=== PATIENT | male | born 1940 | race Caucasian/White ===

== ENCOUNTER → 2019-12-28 11:12 | Outpatient (CLI) | payer MEDICARE, SELFPAY ==
--- NOTE | ~2019-12-28 | CT_ITS ---
EXAMINATION: CT abdomen pelvis wo con DATE: 12/28/2019 11:51 INDICATION: Right-sided abdominal pain, right flank pain. Recent right rib fractures. Loss of appetit e. TECHNIQUE: Computed tomography (CT) of the abdomen and pelvis was performed without intravenous contr ast. Automated exposure control and iterative reconstruction technique were employed. Exam dose: 625 .14 mGy-cm total exam DLP. COMPARISON: None. FINDINGS: Prominent coronary artery calcifications are noted. Heart size is within normal limits. No pericardial or pleural effusion. There is mild discoid atelectasis or scarring in the right lower lob e. There are numerous small stones in the dependent aspect of the gallbladder. No gallbladder wall thick ening or pericholecystic fluid or inflammation. No bile duct or pancreatic duct dilatation. No hepatic, splenic, pancreatic, and adrenal or renal space-occupying mass lesion is evident. There is a 5 mm calculus at the distal aspect of the right ureterovesical junction with associated mi ld to moderate right hydroureteronephrosis. There is an approximately 2.4 mm nonobstructing lower pole right renal calculus. There is an approximately 4.8 x 10.6 mm lower pole nonobstructing left renal calculus with attenuatio n of 943 Hounsfield units approximately. No left hydronephrosis. There is prostate enlargement and calcification. There is atherosclerotic calcification of the abdominal aorta and renal arteries; no abdominal aortic aneurysm. There are iliac artery calcifications. There are innumerable diverticula of the sigmoid colon and lesser involvement of the descending colon . No CT evidence of diverticulitis is detected. Normal appendix. No bowel obstruction, bowel wall thickening, pneumatosis or intraperitoneal free air. Very small fat-containing umbilical hernia. Recent seventh through 11th rib fractures are noted. There is severe degenerative disc disease throughout the included lower thoracic and lumbar spine as well as prominent degenerative change at the apophyseal joints. There is grade 1 anterolisthesis at L1-2. There is mild retrolisthesis at L3-4 and L4-5. 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 Ventriculoperitoneal shunt catheter is noted. IMPRESSION: Recent left seventh through 11th rib fractures, some healing Prominent coronary artery atherosclerotic calcification Cholelithiasis 5 mm obstructing right ureterovesical junction calculus with moderate moderate right hydroureteroneph rosis 2.4 mm nonobstructing lower pole right renal calculus 4.8 x 10.6 mm lower pole left renal nonobstructing calculus Prostate enlargement and calcification Extensive diverticulosis of the sigmoid and to a lesser extent descending colon; no CT evidence of di verticulitis Reviewed, dictated and finalized at [facility]. Reviewed, dictated and finalized at location B. IMPRESSION: Recent left seventh through 11th rib fractures, some healing Prominent coronary artery atherosclerotic calcification Cholelithiasis 5 mm obstructing right ureterovesical junction calculus with moderate moderate right hydroureteronephrosis 2.4 mm nonobstructing lower pole right renal calculus 4.8 x 10.6 mm lower pole left renal nonobstructing calculus Prostate enlargement and calcification Extensive diverticulosis of the sigmoid and to a lesser extent descending colon ; no CT evidence of diverticulitis
== END ==
PROVIDERS: PCP Internal Medicine; Visit Provider Internal Medicine
DX: R10.9 Unspecified abdominal pain (principal); R63.0 Anorexia; N20.2 Calculus of kidney with calculus of ureter; K57.30 Diverticulosis of large intestine without perforation or abscess without bleeding; N40.1 Benign prostatic hyperplasia with lower urinary tract symptoms
CPT/HCPCS: 74176

== ENCOUNTER 2020-01-01 11:20 | Outpatient (CLI) | payer MEDICARE, SELFPAY ==
--- NOTE | ~2020-01-01 | CT_ITS ---
EXAMINATION: CT abdomen pelvis wo con DATE: 01/01/2020 11:48 INDICATION: Right ureteral stone. TECHNIQUE: Computed tomography (CT) of the abdomen and pelvis was performed without intravenous contr ast. Automated exposure control and iterative reconstruction technique were employed. The dose-length product was 229.44 mGy-cm. COMPARISON: CT abdomen and pelvis 12/28/2019 FINDINGS: The visualized portions of the lung bases demonstrate mild atelectasis. No pleural effusion . The heart size is normal. There are coronary artery calcifications. No pericardial effusion. Left h epatic lobe is small. There are gallstones in the gallbladder, which is normal in size. The spleen, p ancreas, and adrenal glands are normal. There is a small area of focal parenchymal volume loss in rig ht kidney with 2 mm parenchymal calcification. There are 5 mm and 4 mm stones in left kidney. The pro state is mildly enlarged. There is a 4 mm stone in the prostatic urethra. There is diverticulosis of the colon without evidence of diverticulitis. There are no dilated loops of bowel. A ventriculoperito gilbert shunt is noted. There are no pathologically enlarged lymph nodes. There is no free intraperitone al fluid. There are multiple healing left-sided rib fractures. There is severe thoracolumbar spondylo sis. There is a benign bone island in T8 vertebral body. IMPRESSION: 1. 4 mm stone in the prostatic urethra. 2. Nonobstructing left kidney stones. Reviewed, dictated and finalized at location B.
--- NOTE | ~2020-01-01 | XR_ITS ---
EXAMINATION: XR abdomen/kub 1V DATE: 01/01/2020 11:53 INDICATION: Right ureteral stone. TECHNIQUE: A supine view of the abdomen on 2 radiographs was obtained. COMPARISON: CT abdomen and pelvis 01/01/2020 FINDINGS: There are no dilated loops of bowel. There are phleboliths in the pelvis. There are 4 mm an d 5 mm stones in left kidney lower pole. A ventriculoperitoneal shunt is noted. IMPRESSION: 1. Left kidney stones. Reviewed, dictated and finalized at location B. IMPRESSION: 1. Left kidney stones.
== END 2020-01-01 11:21 | disposition home or self-care (01) ==
LOC: ANHIMG 11:27
PROVIDERS: PCP Internal Medicine; Visit Provider Nurse Practitioner Adult Health
DX: N20.2 Calculus of kidney with calculus of ureter (principal)
CPT/HCPCS: 74018; 74176

== ENCOUNTER 2021-03-20 08:28 | Outpatient (CLI) | payer MEDICARE, SELFPAY ==
--- NOTE | ~2021-03-20 | CT_ITS ---
EXAMINATION: CT abdomen pelvis w con INDICATION: Prostate cancer TECHNIQUE: Computed tomographic images of the abdomen and pelvis were obtained after the administrati on of 100 cc of Omnipaque 350 intravenous contrast. The dose-length product (DLP) was 647.15 mGy-cm. Automated exposure control and iterative reconstruction technique were employed. COMPARISON: 01/01/2020 FINDINGS: The lung bases are clear. The heart size is normal. The liver is diffusely low in attenuati on when compared with the spleen, consistent with hepatic steatosis. The spleen, pancreas, and adrena l glands are normal. Stones are present in the nondistended gallbladder. Nonobstructing stones of the kidneys measure up to 10 mm on the left and 3 mm on the right. There is calcified atherosclerosis of the aorta and many of the other arteries. No pathologically enlarged abdominal or pelvic lymph nodes are identified. There is no free intraperitoneal gas or evidence of bowel obstruction. A ventriculop eritoneal shunt courses in the right anterior abdominal wall and ends with its tip in the left pelvis . Colonic diverticulosis is present without evidence of diverticulitis. There is a 2.7 cm partially c alcified mass of the left posterolateral bladder. There is severe lumbar spondylosis. There are bilat eral inguinal hernias containing fat. Multiple healed left-sided rib fractures are noted. IMPRESSION: 1. 2.7 cm partially calcified mass of the left posterolateral bladder. Direct visualization is recomm ended. Reviewed, dictated and finalized at location A. IMPRESSION: 1. 2.7 cm partially calcified mass of the left posterolateral bladder. Direct v isualization is recommended.
--- NOTE | ~2021-03-20 | NM_ITS ---
EXAMINATION: NM bone scan whole body DATE: 03/20/2021 11:50 INDICATION: Prostate cancer. TECHNIQUE: 24 mCi Tc-99m HDP was administered intravenously. Delayed whole-body scintigrams were obt ained. COMPARISON: CT abdomen and pelvis 03/20/2021 FINDINGS: There are bilateral total knee arthroplasties. There is joint-centered increased activity i n the shoulders and wrists without comparison radiographs, likely osteoarthritis. There foci of incre ased activity in the spine correlating with spondylosis by CT. IMPRESSION: 1. No evidence of metastatic disease. Reviewed, dictated and finalized at location A.
[2021-03-20 09:01] LABS: Estimated Glomerular Filt Rate > 60
== END 2021-03-20 08:29 | disposition home or self-care (01) ==
PROVIDERS: PCP Internal Medicine; Visit Provider Urology
DX: C66.1 Malignant neoplasm of right ureter (principal)
CPT/HCPCS: 74177; 78306; A9561; Q9967

== ENCOUNTER 2021-04-01 13:17 | Outpatient (CLI) | payer MEDICARE, SELFPAY ==
[2021-04-01 13:55] LABS: Basophils Absolute Auto 0.1 K/mm3 (0.0-0.1); Basophils Percent Auto 0.5 % (0.2-1.2); Eosinophils Absolute Auto 0.4 K/mm3 (0-0.3); Eosinophils Percent Auto 2.7 % (0-4.4); Hematocrit 47.4 % (42.0-52.0); Hemoglobin 16.5 g/dL (14.0-18.0); Immature Granulocyte Absolute 0.13 K/mm3 (0.00-0.031); Lymphocytes Absolute Auto 3.63 K/mm3 (0.9-3.2); Lymphocytes Percent Auto 27.9 % (18.3-44.2); Mean Corpuscular HGB Conc 34.8 g/dl (32-36); Mean Corpuscular Volume 94.8 fl (80-100); Mean Platelet Volume 9.5 fl (7.4-10.4); Monocytes Absolute Auto 0.9 K/mm3 (0.1-0.6); Monocytes Percent Auto 7.2 % (2.6-8.5); Neutrophils Absolute Auto 7.9 K/mm3 (1.3-6.7); Neutrophils Percent Auto 60.7 % (45.5-73.1); Platelet Count Result 209 k/mm3 (150-375); Red Cell Distribution Width 13.4 % (11.5-14.5)
[2021-04-01 14:13] LABS: Anion Gap 11 mmol/L (8-16); Blood Urea Nitrogen 29 mg/dL (9-20); Calcium 9.4 mg/dL (8.4-10.2); Carbon Dioxide 28 mmol/L (22-30); Chloride 103 mmol/L (98-107); Estimated Glomerular Filt Rate > 60; Glucose 130 mg/dL (65-110); Potassium 4.2 mmol/L (3.4-5.0); Sodium 142 mmol/L (137-145)
[2021-04-01 14:16] LABS: Partial Thromboplastin Time 24.1 SECONDS (22.3-36.8)
== END 2021-04-01 13:18 | disposition home or self-care (01) ==
LOC: ANHSURGERY 13:21
PROVIDERS: PCP Internal Medicine; Visit Provider Urology
DX: N32.89 Other specified disorders of bladder (principal); Z01.818 Encounter for other preprocedural examination
CPT/HCPCS: 36415; 80048; 85025; 85610; 85730; 87086

== ENCOUNTER 2021-04-04 03:00 | Day surgery (SDC) | payer MEDICARE, SELFPAY ==
[2021-04-01 09:43] VITALS: BMI 29.9
--- NOTE | 2021-04-01 10:10 | PC.NURSE ---
Report to the Outpatient Waiting Room, entrance under the green pavilion located off [facility], at time _0830__ on date _04/04/21__. OR Time: _1030__. - You and your visitor will be asked a series of questions to screen for COVID 19 for your protection. - A mask is required within the hospital. - Only one visitor is allowed at this time. Patient visitors will be guided where to wait when not with patient. Preoperative COVID Testing Requirements: No COVID Test needed if: (proof is required; if not received patient will have Rapid Test prior to entry) - Patient has received COVID Vaccine at least 14 days prior to procedure date or - Patient has positive COVID test result within last 90 days of surgery date. COVID Test needed if above criteria is not met If not COVID vaccinated a COVID test must be conducted within 72 hours of surgery and patient is asked to isolate self from time of testing until procedure. You will go to the [facility] for your COVID testing. The [facility] is located at the corner of [address] [facility]. You will only be called if COVID results are positive and your surgeon may reschedule your elective surgery date. Patients may have clear liquids (water, carbonated beverages, clear teas, apple juice) until 3 hours prior to surgery with a maximum of 20 ounces. - No food from midnight until time of surgery - Infants may have breast milk until 4 hours before surgery, infant formula 6 hours prior to surgery. - Children will be allowed to drink immediately following surgery. If applicable, please bring a bottle or sippy cup to assist with drinking. Juice, water, soda, and popsicles are readily available. For infants on formula, please bring formula the day of surgery. Pacifiers are allowed. Take the following medications with a SIP of water the morning of surgery: _METOPROLOL, PAIN PILL IF NEEDED___ Medications to discontinue per physician _ASPIRIN, ALL VITAMINS & SUPPLEMENTS____ Date to take last dose__AS OF TODAY Please no make-up, nail brazilian, hairspray, perfume, deodorant, or body powder the day of surgery. No jewelry (including any body piercings) or valuables the day of surgery, leave them at home. Please take a shower or bath the night before, or the morning of, surgery with an antibacterial soap. Wear comfortable, loose fitting clothing. Children are encouraged to wear pajamas. - Jewelry must be removed prior to entering the operating room. Rings and piercings that are not removed may be cut off. - The hospital will not accept responsibility for valuables. - Please leave all valuables, including medications, at home the day of surgery. If you are going home after surgery, a licensed tractor trailer truck driver must drive you home. - NO public transportation without another adult. - We recommend that an adult stay with you for 24 hours following discharge. - We also recommend that you do not drive, make important decision, drink alcoholic beverages, or take any drugs that were not prescribed by your health care provider for at least 24 hours after your discharge time. For Pediatric surgeries, we recommend two adults accompany the child home (only one inside the building at this time). Follow any additional instructions given to you from your surgeon. Telephone instructions given to ___PT____and asked if any additional questions and then verbalized understanding. Patient advised to call surgeon office or pre surgery nurse liaison [phone] if any additional questions.
[2021-04-04] VITALS (8 sets, daily range): BP systolic 95–153; BP diastolic 54–78; PULSE 57–72; RESP 12–16; TEMP 36.1–36.4; O2SAT 99–100
--- NOTE | 2021-04-04 11:26 | WPDANESEPPF ---
Anes - Initial Pre Proc Eval Procedure: Operation Date: 04/04/21 13:00 Proposed Procedures p Trans Urethral Resection Bladder Tumor - Chris Estevez MD Date/Time: 04/04/21 11:26 Surgeon: Chris Estevez MD Pre Op Diagnosis: bladder mass Patient Data Age: 80 Gender: M Height: 1.73 m Weight: 87.5 kg Allergies Allergy/AdvReac Type Severity Reaction Status Date / Time morphine Allergy Mild NAUSEA/VOMI Verified 04/04/21 11:26 TTING Penicillins Allergy Mild RASH Verified 04/04/21 11:26 Home Medications Medication Instructions Recorded Confirmed Type Curamin 1 tab-cap QAM 04/01/21 04/04/21 History ascorbic acid (vitamin C) [Vitamin 1 g PO QAM 04/01/21 04/04/21 History C] aspirin [Aspir-81] 81 mg PO QAM 04/01/21 04/04/21 History atorvastatin 10 mg HS 04/01/21 04/01/21 History celecoxib 200 mg QAM 04/01/21 04/01/21 History cholecalciferol (vitamin D3) 25 mcg PO QAM 04/01/21 04/04/21 History [Vitamin D3] cyanocobalamin (vitamin B-12) 1,000 mcg SUBLINGUAL QAM 04/01/21 04/04/21 History [Vitamin B-12] hydrocodone-acetaminophen 1 tablet Q6H PRN 04/01/21 04/04/21 History aojei-eouej-0-jaa-wcg-noybyl 1 cap PO QAM 04/01/21 04/04/21 History [krill oil] lactobacillus combo no.11 1 cap PO DAILY 04/01/21 04/04/21 History [Probiotic] metoprolol succinate 12.5 mg PO HS 04/01/21 04/04/21 History multivitamin [Multi-Vitamin] 1 tablet PO DAILY 04/01/21 04/04/21 History organ concentrates [Prostate] 140 mg PO BID 04/01/21 04/04/21 History vit B cmplx #9-FA-vit C-vit E 1 tablet PO QAM 04/01/21 04/04/21 History vit C,D-Ue-xxpvk-lutein-zeaxan 1 tablet PO BID 04/01/21 04/04/21 History [PreserVision AREDS-2] Patient hx anesthesia problems: none Family hx anesthesia problems: none Results Review: All pre-operative results and documents have been reviewed as part of the pre-operative evaluation. FORMERLY [facility], [facility] Past Medical History Medical History CAD (coronary artery disease) Hyperlipidemia Hypertension Surgical History Surgical History Stented coronary artery Social History Social History Smoking status: Never smoker Second hand tobacco smoke exposure: No Alcohol intake: never Substance use: never Substance use type: does not use Living arrangements: with family Spiritual care concerns: No Anes - Eval Final PreProcedure Day of Procedure 04/04/21 11:26 Patient weight: overweight Heart: regular rate and rhythm Lungs: clear to auscultation Airway: Mallampati scale class II Neurological: alert and oriented Last oral intake: >/= 8 hours ASA classification: III Emergent: no Anesthetic plan: proceed Anesthesia type and monitoring: general LMA and standard monitoring Results Review: All pre-operative results and documents have been reviewed as part of the pre-operative evaluation. Informed Consent: The patient's anesthetic plan and its attendant risks and benefits were discussed with the patient/family/POA. Questions were solicited and answers provided to the satisfaction of the patient/family/POA.
[2021-04-04] MEDS: LACTATED RINGERS 1,000 ML 30 ML IV CONT ×2 (11:40→13:26)
--- NOTE | 2021-04-04 11:54 | WPDHPUPDATE1 ---
History and Physical Update Update Date/Time: 04/04/21 11:54 History and Physical has been reviewed, including an updated exam of the patient. There are NO changes in the patient's condition. Risks, benefits, and alternatives have been discussed and questions answered. Patient agrees to proceed with procedure. Proceed with transurethral resection of bladder tumor.
[2021-04-04] MEDS: ceFAZolin 2 GM/D5W 50 ML 2 GM/50 ML BAG IVPB (12:15)
[2021-04-04] MEDS: LIDOCAINE HCL 2% GEL UROJET 10 ML PKG MUCOUS MEM (13:10)
--- NOTE | 2021-04-04 13:18 | W.PM.PROC2 ---
Procedure Note - Detailed Date of Procedure 04/04/21 Pre-op Diagnosis bladder mass-3 cm Post-op Diagnosis same Procedure Performed Transurethral resection of medium bladder tumor 3 to 3.5 cm Surgeon Chris Estevez MD Anesthesia general Description of Procedure Patient is taken the operative suite correctly identified. Once anesthesia was obtained was placed in dorsal lithotomy position prepped draped sterile fashion. Twenty-two Djiboutian scope inserted into the urethra. Patient does have a mild stricture was passively dilated in dilated with sounds up to 26 Djiboutian. Twenty-four Djiboutian resectoscope sheath was inserted in the bladder. He has a tumor least 3 to 3.5 cm along the left lateral wall extending to the anterior area. This was resected. The base was resected a separate specimen. We fulgurated the base. There was good hemostasis at termination procedure. Specimens were sent for analysis. 2% viscous lidocaine was inserted into the urethra. [address] was placed and inflated with 15 cc of sterile water. This was connected to continuous bladder irrigation and patient is taken recovery room stable condition. Plan is to wean the irrigation to off and discharged home with Pozo catheter and have it removed next Wednesday or Wednesday. Further recommendations pending the path report. Drains Yes Packing No Pathology yes Complications No immediate complications Condition stable Disposition PACU
--- NOTE | 2021-04-04 18:07 | SUR.PHASEII ---
Vitals were stable. Patient unhooked from monitors and getting instructions/dressed. Spouse was present in room with patient.
== END 2021-04-04 16:00 | disposition home or self-care (01) ==
PROVIDERS: PCP Internal Medicine; Visit Provider Urology
PROC: 0TBB8ZZ Excision of Bladder, Via Natural or Artificial Opening Endoscopic (ICD-10-PCS; CPT 52235; principal; 2021-04-04 13:00)
DX: C67.8 Malignant neoplasm of overlapping sites of bladder (principal); I10 Essential (primary) hypertension; E78.5 Hyperlipidemia, unspecified; I25.10 Atherosclerotic heart disease of native coronary artery without angina pectoris; Z95.5 Presence of coronary angioplasty implant and graft; Z79.82 Long term (current) use of aspirin
CPT/HCPCS: 52235; 36415; 80048; 85025; 85610; 85730; 87086; 88305; J0330; J0690; J1100; J2405; J2704; J3010; J7120

== ENCOUNTER 2021-09-15 15:00 | Outpatient (RCR) | payer MEDICARE, SELFPAY ==
--- NOTE | 2021-09-05 12:19 | PTOPEVAL ---
PHYSICAL THERAPY EVALUATION AND PLAN OF CARE 09-05-21 Thank you for referring Canelo Perez to [facility].? Felix is scheduled to be seen for therapy? 1-2 x/week for 5 weeks. Please review, sign, date and return this plan of care DK. I agree with and certify that the following plan of care is medically necessary. 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 Respiratory History Hx Sleep Apnea Yes: CPAP Gastrointestinal History Hx Gastrointestinal Disorders No Significant History Genitourinary History Hx Other Genitourinary Disorders Yes: BLADDER TUMOR, PROSTATE CA, 45 radiation treatments Musculoskeletal History Hx Arthritis Yes Hx Back Pain Yes: CHRONIC Hx Crutches or Walker Use Yes: PT AMBULATES WITH CANE & Query Text:If Yes, Enter Crutches, USES WALKER FOR LONG DISTANCES Walker, or Both in the Comment Hx Joint Replacement Yes: BILATERAL KEES Hx Spinal Surgery Yes: lumbar surgery 3x Hematological History Hx Hematological Disorders No Significant History Endocrine History Hx Endocrine Disorders No Significant History HEENT History Hx Cataracts Yes: LT REMOVED Hx Tonsillectomy Yes Hx Other HEENT Disorders Yes: GLASSES, KOI-HEARING AIDS X2 Integumentary History Hx Excision Skin Lesion Yes Hx Other Skin Disorders Yes: SKIN CA Reproductive History Hx Other Reproductive Disorders Yes: VASECTOMY Psychosocial History Hx Psychiatric Disorders No Significant History Pain History Has Past Pain Affected Your Daily Life Yes: BACK History of Long-Term Prescription Pain Yes: HYDROCODONE Medication Use (Opiates) Anesthesia History Hx Other Anesthesia Reactions Yes: STATES SLOW TO WAKE UP Other History Hx Cancer Yes: SKIN, PROSTATE, BLADDER Hx Implanted Device Yes: BILATERAL KNEES, SHUNT Evaluation Information Problem Diagnosis syncopy/ vestibular therapy Onset Jun 2021 Prior Level of Function Home Setting Home Type House Environmental
--- NOTE | 2021-09-12 12:39 | PCPTNOTE ---
Patient's called & cancelled scheduled appointment this date due to patient not being able to make it.
--- NOTE | 2021-09-17 10:31 | PCPTNOTE ---
Patient called & cancelled scheduled appointment this date due to feeling better, no dizziness.
--- NOTE | 2021-09-23 15:57 | PCPTNOTE ---
PHYSICAL THERAPY DISCHARGE 09-23-21 Attending Provider: Shay Keita MD Patient:Canelo Perez Date of :1940 Pt's called today and stated that Canelo has not been having any issues with dizziness. And he is having surgery next week for removal of a recently found bladder tumor. Therefore, PT will be discharged at this time. He has received 3 PT sessions, for the diagnosis of syncopy. Thank you for referring Mr. Perez to [facility]. Please review, sign, date and return this discharge summary DK. I have been updated about the patient's current status and I agree with discharge from the above service at this time. Referring Physician Date
== END 2021-09-24 11:06 | disposition home or self-care (01) ==
LOC: ANHPT 15:00
PROVIDERS: PCP Internal Medicine; Visit Provider Internal Medicine
DX: R55 Syncope and collapse (principal)
CPT/HCPCS: 97162; 97530

== ENCOUNTER 2021-09-23 12:44 | Outpatient (CLI) | payer MEDICARE, SELFPAY ==
--- NOTE | 2021-09-23 12:58 | ECG_ITS ---
Measurements Intervals [place] Rate: 57 P: 66 [place]: 190 QRS: -51 QRSD: 146 T: 80 QT: 475 QTc: 464 Interpretive Statements SINUS BRADYCARDIA LEFT AXIS DEVIATION LEFT BUNDLE BRANCH BLOCK INFERIOR INFARCT OR DUE TO LBBB ABNORMAL ECG Electronically Signed On 09-23-2021 13:29:32 CDT by Andrew Lynne D.O.
[2021-09-23 13:33] LABS: Basophils Percent Auto 0.4 % (0.2-1.2); Eosinophils Absolute Auto 0.3 K/mm3 (0-0.3); Eosinophils Percent Auto 5.8 % (0-4.4); Hematocrit 38.1 % (42.0-52.0); Hemoglobin 12.9 g/dL (14.0-18.0); Immature Granulocyte Absolute 0.03 K/mm3 (0.00-0.031); Immature Granulocyte Percent A 0.6 % (0-0.5); Immature Platelet Fraction Pct 2.5 % (0.9-11.2); Lymphocytes Absolute Auto 1.24 K/mm3 (0.9-3.2); Lymphocytes Percent Auto 25.8 % (18.3-44.2); Mean Corpuscular HGB Conc 33.9 g/dl (32-36); Mean Corpuscular Hemoglobin 33.5 pg (26-34); Mean Platelet Volume 9.5 fl (7.4-10.4); Monocytes Absolute Auto 0.6 K/mm3 (0.1-0.6); Monocytes Percent Auto 12.9 % (2.6-8.5); Neutrophils Absolute Auto 2.6 K/mm3 (1.3-6.7); Neutrophils Percent Auto 54.5 % (45.5-73.1); Platelet Count Result 150 k/mm3 (150-375); Red Blood Count 3.85 M/mm3 (4.6-6.20); Red Cell Distribution Width 13.3 % (11.5-14.5); White Blood Count 4.8 K/mm3 (4.5-10.0)
[2021-09-23 13:46] LABS: Anion Gap 5 mmol/L (8-16); Blood Urea Nitrogen 19 mg/dL (9-20); Calcium 9.5 mg/dL (8.4-10.2); Carbon Dioxide 30 mmol/L (22-30); Chloride 105 mmol/L (98-107); Estimated Glomerular Filt Rate > 60; Glucose 113 mg/dL (65-110); Potassium 4.7 mmol/L (3.4-5.0); Sodium 140 mmol/L (137-145)
[2021-09-23 13:58] LABS: INR 1.1; Prothrombin Time 13.7 Seconds (11.1-14.7)
[2021-09-23 13:59] LABS: Partial Thromboplastin Time 26.6 SECONDS (22.3-36.8)
== END 2021-09-23 12:45 | disposition home or self-care (01) ==
LOC: ANHSURGERY 12:49
PROVIDERS: PCP Internal Medicine; Visit Provider Urology
DX: Z01.818 Encounter for other preprocedural examination (principal); I10 Essential (primary) hypertension; C67.9 Malignant neoplasm of bladder, unspecified; R94.31 Abnormal electrocardiogram [ECG] [EKG]; I44.7 Left bundle-branch block, unspecified
CPT/HCPCS: 36415; 80048; 85025; 85055; 85610; 85730; 87086; 93005

== ENCOUNTER 2021-09-30 00:05 | Day surgery (SDC) | payer MEDICARE, SELFPAY ==
[2021-09-23 09:24] VITALS: BMI 30.7
--- NOTE | 2021-09-23 09:54 | PC.NURSE ---
Report to the Outpatient Waiting Room, entrance under the green pavilion located off [facility], at time __7:30AM on date _09/30/21 . OR Time: _9:30AM . - You and your visitor will be asked a series of questions to screen for COVID 19 for your protection. - Only one visitor is allowed at this time. - The patient visitor is requested to leave or wait in car when not with patient. - A mask is required within the hospital. Patients may have clear liquids (water, carbonated beverages, clear teas, apple juice) until 3 hours prior to surgery with a maximum of 20 ounces. - No food from midnight until time of surgery - Infants may have breast milk until 4 hours before surgery, formula 6 hours prior to surgery. - Children will be allowed to drink immediately following surgery. If applicable, please bring a bottle or sippy cup to assist with drinking. Juice, water, soda, and popsicles are readily available. For infants on formula, please bring formula the day of surgery. Pacifiers are allowed. Take the following medications with a SIP of water the morning of surgery: ___HYDROCODONE NEEDED Medications to discontinue per physician HOLD ASPIRIN & ALL VITAMINS/SUPPLEMENTS 7 DAYS PRE-OP Date to take last dose____09/23/21 Please no make-up, nail indonesian, hairspray, perfume, deodorant, or body powder the day of surgery. No jewelry (including any body piercings) or valuables the day of surgery, leave them at home. Please take a shower or bath the night before, or the morning of, surgery with an antibacterial soap. Wear comfortable, loose fitting clothing. Children are encouraged to wear pajamas. - Jewelry must be removed prior to entering the operating room. Rings and piercings that are not removed may be cut off. - The hospital will not accept responsibility for valuables. - Please leave all valuables, including medications, at home the day of surgery. If you are going home after surgery, a licensed pizza driver must drive you home. - NO public transportation without another adult. - We recommend that an adult stay with you for 24 hours following discharge. - We also recommend that you do not drive, make important decision, drink alcoholic beverages, or take any drugs that were not prescribed by your health care provider for at least 24 hours after your discharge time. For Pediatric surgeries, we recommend two adults accompany the child home (only one inside the building at this time). Follow any additional instructions given to you from your surgeon. If you or anyone in your household have experienced Covid symptoms in the past week, please notify your surgeon or the nurse liaison at the phone number below for possible testing. Telephone instructions given to __PATIENT & , RAFIQ, and asked if any additional questions and then verbalized understanding. Patient advised to call surgeon office or pre surgery nurse liaison [phone] if any additional questions.
[2021-09-30] VITALS (8 sets, daily range): BP systolic 122–141; BP diastolic 54–98; PULSE 57–75; RESP 12–16; TEMP 36.2–36.3; O2SAT 96–100
--- NOTE | ~2021-09-30 | XR_ITS ---
EXAMINATION: XR urethrocystogram DATE: 09/30/2021 8:30 CDT INDICATION: RETROGRADE URETHROGRAM . TECHNIQUE: 5 fluoroscopic images of the pelvis were obtained during retrograde urethrogram performed by the surgeon. I was not present in the operating room. Fluoroscopy exposure time was 24.7 seconds. Cumulative dose [id number] mGym2 COMPARISON: CT abdomen pelvis 03/12/2021 FINDINGS: Fluoroscopic images document cannulation of the urethra with contrast injection of the bladder. Calci fied posterior lateral bladder mass. No contrast reflux. IMPRESSION: Fluoroscopic documentation of retrograde urethrogram. Reviewed, dictated and finalized at location K.
--- NOTE | 2021-09-30 07:31 | WPDHPUPDATE1 ---
History and Physical Update Update Date/Time: 09/30/21 07:31 History and Physical has been reviewed, including an updated exam of the patient. There are NO changes in the patient's condition. Risks, benefits, and alternatives have been discussed and questions answered. Patient agrees to proceed with procedure. Proceed with retrograde urethrogram, urethral dilation, cysto, possible turbt.
--- NOTE | 2021-09-30 07:38 | WPDANESEPPF ---
Anes - Initial Pre Proc Eval Procedure: Operation Date: 09/30/21 09:30 Proposed Procedures p Cystoscopy , Retrograde Urethrogram, Urethral Dilation - Chris Estevez MD s Possible Trans Urethral Resection Bladder Tumor - Chris Estevez MD Date/Time: 09/30/21 07:38 Surgeon: Chris Estevez MD Pre Op Diagnosis: bladder cancer Patient Data Age: 80 Gender: M Height: 1.7 m Weight: 87.15 kg Last Vital Signs Temp 36.2 C L 09/30/21 07:25 Pulse 66 09/30/21 07:25 Resp 16 09/30/21 07:25 BP 124/54 L 09/30/21 07:25 Pulse Ox 96 09/30/21 07:25 Allergies Allergy/AdvReac Type Severity Reaction Status Date / Time amoxicillin Allergy Intermediate Rash Verified 09/30/21 07:44 Penicillins Allergy Mild RASH Verified 09/24/21 13:39 morphine AdvReac Mild NAUSEA/VOMI Verified 09/24/21 13:39 TTING Home Medications Medication Instructions Recorded Confirmed Type Curamin 1 tab-cap PO BID 04/01/21 09/23/21 History PreserVision AREDS-2 1 tablet PO BID 04/01/21 09/23/21 History Probiotic 1 cap PO DAILY 04/01/21 09/23/21 History ascorbic acid (vitamin C) [Vitamin 1 g PO QAM 04/01/21 09/23/21 History C] aspirin 81 mg PO QAM 04/01/21 09/23/21 History atorvastatin 10 mg PO HS 04/01/21 09/23/21 History celecoxib 200 mg PO QAM 04/01/21 09/23/21 History cholecalciferol (vitamin D3) 25 mcg PO QAM 04/01/21 09/23/21 History [Vitamin D3] cyanocobalamin (vitamin B-12) 1,000 mcg SUBLINGUAL QAM 04/01/21 09/23/21 History hydrocodone-acetaminophen 1 tablet PO Q6H PRN 04/01/21 09/23/21 History pyarn-vgpam-5-hfd-bge-blbflu 1 cap PO QAM 04/01/21 09/23/21 History [krill oil] metoprolol succinate 25 mg PO HS 04/01/21 09/23/21 History multivitamin 1 tablet PO DAILY 04/01/21 09/23/21 History vit B cmplx #9-FA-vit C-vit E 1 tablet PO QAM 04/01/21 09/23/21 History meclizine 25 mg PO TID PRN 04/04/21 09/23/21 History tamsulosin 0.4 mg PO DAILY 09/23/21 09/23/21 History Patient hx anesthesia problems: none Family hx anesthesia problems: none Results Review: All pre-operative results and documents have been reviewed as part of the pre-operative evaluation. [facility] Past Medical History Medical History (Updated 09/30/21 @ 07:40 by Ron Moreira MD) CAD (coronary artery disease) Hyperlipidemia Hypertension Myocardial infarct NPH (normal pressure hydrocephalus) BRETT (obstructive sleep apnea) Surgical History Surgical History (Updated 09/30/21 @ 07:39 by Ron Moreira MD) History of total knee arthroplasty Hx of cystoscopy Stented coronary artery Social History Social History (System 09/24/21 @ 13:39 by Sunita Jones) Smoking status: Never smoker Second hand tobacco smoke exposure: No Alcohol intake: never Substance use: never Substance use type: does not use Living arrangements: with family Additional living arrangements comments: Spiritual care concerns: No Anes - Eval Final PreProcedure Day of Procedure 09/30/21 07:38 Patient weight: obese Heart: regular rate and rhythm Lungs: clear to auscultation Airway: Mallampati scale class II Neurological: alert and oriented Last oral intake: >/= 8 hours ASA classification: III Emergent: no Anesthetic plan: proceed Anesthesia type and monitoring: general LMA and standard monitoring Results Review: All pre-operative results and documents have been reviewed as part of the pre-operative evaluation. Informed Consent: The patient's anesthetic plan and its attendant risks and benefits were discussed with the patient/family/POA. Questions were solicited and answers provided to the satisfaction of the patient/family/POA.
[2021-09-30] MEDS: LACTATED RINGERS 1,000 ML 30 ML IV CONT (07:55)
[2021-09-30] MEDS: ceFAZolin 2 GM/D5W 50 ML 2 GM/50 ML BAG IVPB (08:25)
[2021-09-30] MEDS: LIDOCAINE HCL 2% GEL UROJET 10 ML PKG MUCOUS MEM (09:05)
--- NOTE | 2021-09-30 09:09 | W.PM.PROC2 ---
Procedure Note - Detailed Date of Procedure 09/30/21 Pre-op Diagnosis bladder cancer, urethral stricture Post-op Diagnosis Same Procedure Performed Retrograde urethrogram, urethral dilation, cystoscopy, transurethral resection of bladder neck lesion (calcifications), complex Pozo placement Surgeon Chris Estevez MD Description of Procedure Patient is taken the operative suite correctly identified. Once anesthesia was obtained was placed in dorsal lithotomy position and prepped and draped usual sterile fashion. Nineteen Togolese scope inserted into the urethra. He has a bulbar contracture which would not allow passage. A wire would not pass through. We then did a retrograde urethrogram using a 16 Togolese red rubber catheter. We injected 15 cc of contrast. Contrast made its way into the bladder. We then used a mini flexible ureteral scope to navigate our way into the bladder. A guidewire was placed. We then dilated using Amplants dilators up to 24 Togolese. Scope was then replaced. He had quite a significant amount of calcification at the bladder neck from 12:00 to 3:00 a.m.. There was also some calcifications on the bladder wall at the lateral side as well as on the right floor. We scraped some of these off and resected some a. The tissue underneath the calcifications was extremely hard and firm. We resected some of the tissue along the bladder neck area but again this was very fibrotic in nature. Fulguration was used for hemostasis. 2% viscous lidocaine was then inserted into the urethra. Twenty Togolese [place] tip catheter was passed over the wire into the bladder. We inflated the balloon with 10 cc. Patient is taken recovery stable condition. He will be discharged home and have the catheter removed on Wednesday. Estimated Blood Loss 0 Drains Yes Packing No Pathology Yes Complications No immediate complications Condition Stable Disposition PACU
== END 2021-09-30 11:20 | disposition home or self-care (01) ==
PROVIDERS: PCP Internal Medicine; Visit Provider Urology
PROC: (CPT 52352; principal; 2021-09-30 09:30)
PROC: 0TBB8ZZ Excision of Bladder, Via Natural or Artificial Opening Endoscopic (ICD-10-PCS; CPT 52500; 2021-09-30 09:30)
DX: N32.89 Other specified disorders of bladder (principal); N35.912 Unspecified bulbous urethral stricture, male; Z85.51 Personal history of malignant neoplasm of bladder; I10 Essential (primary) hypertension; E78.5 Hyperlipidemia, unspecified; I25.2 Old myocardial infarction; I25.10 Atherosclerotic heart disease of native coronary artery without angina pectoris; G47.33 Obstructive sleep apnea (adult) (pediatric); Z85.46 Personal history of malignant neoplasm of prostate; Z79.82 Long term (current) use of aspirin; Z95.5 Presence of coronary angioplasty implant and graft; E66.9 Obesity, unspecified; Z68.30 Body mass index [BMI] 30.0-30.9, adult
CPT/HCPCS: 52500; 36415; 51610; 74450; 80048; 85025; 85055; 85610; 85730; 87086; 88305; 93005; A9270; C1726; C1769; J0690; J2405; J2704; J3010; J7120; Q9966

== ENCOUNTER 2022-01-21 11:13 | Outpatient (CLI) | payer MEDICARE, SELFPAY ==
[2022-01-21 11:50] LABS: Basophils Percent Auto 0.4 % (0.2-1.2); Eosinophils Absolute Auto 0.4 K/mm3 (0-0.3); Eosinophils Percent Auto 5.6 % (0-4.4); Hematocrit 36.9 % (42.0-52.0); Hemoglobin 12.3 g/dL (14.0-18.0); Immature Granulocyte Absolute 0.04 K/mm3 (0.00-0.031); Immature Granulocyte Percent A 0.6 % (0-0.5); Immature Platelet Fraction Pct 2.7 % (0.9-11.2); Lymphocytes Absolute Auto 1.01 K/mm3 (0.9-3.2); Lymphocytes Percent Auto 14.9 % (18.3-44.2); Mean Corpuscular HGB Conc 33.3 g/dl (32-36); Mean Corpuscular Hemoglobin 32.7 pg (26-34); Mean Corpuscular Volume 98.1 fl (80-100); Mean Platelet Volume 9.5 fl (7.4-10.4); Monocytes Absolute Auto 0.7 K/mm3 (0.1-0.6); Monocytes Percent Auto 9.9 % (2.6-8.5); Neutrophils Absolute Auto 4.7 K/mm3 (1.3-6.7); Neutrophils Percent Auto 68.6 % (45.5-73.1); Platelet Count Result 163 k/mm3 (150-375); Red Blood Count 3.76 M/mm3 (4.6-6.20); Red Cell Distribution Width 14.4 % (11.5-14.5); White Blood Count 6.8 K/mm3 (4.5-10.0)
[2022-01-21 11:55] LABS: Anion Gap 9 mmol/L (8-16); Blood Urea Nitrogen 18 mg/dL (9-20); Calcium 9.7 mg/dL (8.4-10.2); Carbon Dioxide 32 mmol/L (22-30); Chloride 100 mmol/L (98-107); Estimated Glomerular Filt Rate > 60; Glucose 159 mg/dL (65-110); Potassium 4.6 mmol/L (3.4-5.0); Sodium 141 mmol/L (137-145)
[2022-01-21 12:01] LABS: INR 1.1; Prothrombin Time 13.7 Seconds (11.1-14.7)
[2022-01-21 12:02] LABS: Partial Thromboplastin Time 27.3 SECONDS (22.3-36.8)
== END 2022-01-21 11:14 | disposition home or self-care (01) ==
PROVIDERS: PCP Family Medicine; Visit Provider Urology
DX: C67.9 Malignant neoplasm of bladder, unspecified (principal); Z01.818 Encounter for other preprocedural examination
CPT/HCPCS: 36415; 80048; 85025; 85055; 85610; 85730; 87077; 87086; 87186

== ENCOUNTER 2022-02-03 00:42 | Day surgery (SDC) | payer MEDICARE, SELFPAY ==
--- NOTE | 2022-01-19 12:55 | PC.NURSE ---
PRE-OP INSTRUCTIONS, PLEASE READ CAREFULLY Report to the Outpatient Waiting Room, entrance under the green pavilion located off [facility], at time _1000_ on date _01/27/22_. OR Time: _1200_. - You and your visitor will be asked to self-screen and do not enter if you have any COVID symptoms. - Only one visitor and NO children visitors are allowed at this time. - The patient visitor is requested to leave or wait in car when not with patient due to restrictions. - A mask is required within the hospital. Patients may have clear liquids (water, carbonated beverages, clear teas, apple juice) until 3 hours prior to surgery (0900 AM) with a maximum of 20 ounces. - No food from midnight until time of surgery Take the following medications with a SIP of water the morning of surgery: _PAIN PILL, NITROGLYCERIN IF NEEDED_ Medications to discontinue _ASPIRIN PER INSTRUCTED BY DR. TRUJILLO_ Medications to discontinue per ANESTHESIA - _ALL VITAMINS, SUPPLEMENTS AND PROBIOTIC 3 DAYS PRIOR TO SURGERY, Date to take last dose 01/23/22_ Please no make-up, nail australian, hairspray, perfume, deodorant, or body powder the day of surgery. No jewelry (including any body piercings) or valuables the day of surgery, leave them at home. Please take a shower or bath the night before, or the morning of, surgery with an antibacterial soap. Wear comfortable, loose fitting clothing. - Jewelry must be removed prior to entering the operating room. Rings and piercings that are not removed may be cut off. - The hospital will not accept responsibility for valuables. - Please leave all valuables, including medications, at home the day of surgery. If you are going home after surgery, a licensed jinrikisha driver must drive you home. - NO public transportation without another adult. - We recommend that an adult stay with you for 24 hours following discharge. - We also recommend that you do not drive, make important decision, drink alcoholic beverages, or take any drugs that were not prescribed by your health care provider for at least 24 hours after your discharge time. Follow any additional instructions given to you from your surgeon. If you or anyone in your household have experienced Covid symptoms in the past week, please notify your surgeon or the nurse liaison at the phone number below for possible testing. Telephone instructions given to _PT'S SPOUSE (RAFIQ) and asked if any additional questions and then verbalized understanding. Patient advised to call surgeon office or pre surgery nurse liaison [phone] if any additional questions.
[2022-01-19 13:01] VITALS: BMI 30.4
--- NOTE | 2022-01-29 09:29 | PC.NURSE ---
Report to the Outpatient Waiting Room, entrance under the green pavilion located off [facility], at time _1030 on date __02/03/22 . OR Time: ____1230____. Time changes happen often and if your time is changed the preop area will call you the afternoon before. - You and your visitor will be asked to self-screen and do not enter if you have any COVID symptoms. - Only one visitor and NO children visitors are allowed at this time. - The patient visitor is requested to leave or wait in car when not with patient due to restrictions. - A mask is required within the hospital. Patients may have clear liquids (water, carbonated beverages, clear teas, apple juice) until 3 hours prior to surgery (0930 AM) with a maximum of 20 ounces. - No food from midnight until time of surgery - Infants may have breast milk until 4 hours before surgery, formula 6 hours prior to surgery. - Children will be allowed to drink immediately following surgery. If applicable, please bring a bottle or sippy cup to assist with drinking. Juice, water, soda, and popsicles are readily available. For infants on formula, please bring formula the day of surgery. Pacifiers are allowed. Take the following medications with a SIP of water the morning of surgery: PAIN MED IF NEEDED, NITROGLYCERIN IF NEEDED Medications to discontinue per physician __ASA PER DR. SUMMERS. PER ANESTHESIA VITAMINS, SUPPLEMENTS, PRO-BIOTIC 3 DAYS PRIOR TO SURGERY, Date to take last dose 01/30/22 Please no make-up, nail dominican, hairspray, perfume, deodorant, or body powder the day of surgery. No jewelry (including any body piercings) or valuables the day of surgery, leave them at home. Please take a shower or bath the night before, or the morning of, surgery with an antibacterial soap. Wear comfortable, loose fitting clothing. Children are encouraged to wear pajamas. - Jewelry must be removed prior to entering the operating room. Rings and piercings that are not removed may be cut off. - The hospital will not accept responsibility for valuables. - Please leave all valuables, including medications, at home the day of surgery. If you are going home after surgery, a licensed public transit bus driver must drive you home. - NO public transportation without another adult. - We recommend that an adult stay with you for 24 hours following discharge. - We also recommend that you do not drive, make important decision, drink alcoholic beverages, or take any drugs that were not prescribed by your health care provider for at least 24 hours after your discharge time. For Pediatric surgeries, we recommend two adults accompany the child home (only one inside the building at this time). Follow any additional instructions given to you from your surgeon. If you or anyone in your household have experienced Covid symptoms in the past week, please notify your surgeon or the nurse liaison at the phone number below for possible testing. Telephone instructions given to PT and asked if any additional questions and then verbalized understanding. Patient advised to call surgeon office or pre surgery nurse liaison [phone] if any additional questions.
[2022-02-03] VITALS (10 sets, daily range): BP systolic 116–139; BP diastolic 40–96; PULSE 55–78; RESP 8–16; TEMP 36.1–36.6; O2SAT 99–100
--- NOTE | 2022-02-03 08:25 | WPDHPUPDATE1 ---
History and Physical Update Update Date/Time: 02/03/22 08:25 History and Physical has been reviewed, including an updated exam of the patient. There are NO changes in the patient's condition. Risks, benefits, and alternatives have been discussed and questions answered. Patient agrees to proceed with procedure. Proceed with cysto, TURBT with fulguration
[2022-02-03] MEDS: LACTATED RINGERS 1,000 ML 30 ML IV CONT ×2 (10:00→11:50)
--- NOTE | 2022-02-03 10:40 | WPDANESEPPF ---
Anes - Initial Pre Proc Eval Procedure: Operation Date: 02/03/22 11:30 Proposed Procedures p Trans Urethral Resection Bladder Tumor - Chris Estevez MD s Cystoscopy with Fulguration - Chris Estevez MD Date/Time: 02/03/22 10:40 Surgeon: Chris Estevez MD Pre Op Diagnosis: bladder CA Patient Data Age: 81 Gender: M Height: 1.7 m Weight: 88 kg Allergies Allergy/AdvReac Type Severity Reaction Status Date / Time amoxicillin Allergy Intermediate Rash Verified 01/19/22 12:47 Penicillins Allergy Mild RASH Verified 01/19/22 12:47 sulfamethoxazole AdvReac Severe Diarrhea Verified 01/19/22 12:47 [From Bactrim] trimethoprim [From Bactrim] AdvReac Severe Diarrhea Verified 01/19/22 12:47 morphine AdvReac Mild NAUSEA/VOMI Verified 01/19/22 12:47 TTING Home Medications Medication Instructions Recorded Confirmed Type Curamin 1 tab-cap PO BID 04/01/21 01/19/22 History ascorbic acid (vitamin C) 1,000 mg 1 g PO QAM 04/01/21 01/19/22 History tablet (Vitamin C) aspirin 81 mg tablet,delayed 81 mg PO QAM 04/01/21 01/19/22 History release atorvastatin 10 mg tablet 10 mg PO HS 04/01/21 01/19/22 History cholecalciferol (vitamin D3) 25 25 mcg PO QAM 04/01/21 01/19/22 History mcg (1,000 unit) tablet (Vitamin D3) cyanocobalamin (vitamin B-12) 1,000 mcg sublingual QAM 04/01/21 01/19/22 History 1,000 mcg sublingual tablet krill 1 cap PO QAM 04/01/21 01/19/22 History hga-ii-0-sby-rih-rdwcndsjvvfjq 300 mg-90 mg-24 mg-50 mg capsule (krill oil) lactobacillus combo no.11 15 1 cap PO DAILY 04/01/21 01/19/22 History billion cell sprinkle capsule (Probiotic) metoprolol succinate 25 mg 25 mg PO HS 04/01/21 01/19/22 History tablet,extended release 24 hr multivitamin 1 tablet PO DAILY 04/01/21 01/19/22 History vit C 250 mg-vit E 90 mg-zinc 40 1 tablet PO BID 04/01/21 01/19/22 History mg-copper 1 ud-zeajdz-xrotqw capsule (PreserVision AREDS-2) vitamin B complex #9-folic 1 tablet PO QAM 04/01/21 01/19/22 History acid-vit C-vit E 1 mg-60 mg-5 unit tablet meclizine 25 mg tablet 25 mg PO TID PRN Dizziness 04/04/21 01/19/22 History tamsulosin 0.4 mg capsule 0.4 mg PO DAILY 09/23/21 01/19/22 History coenzyme L35-vqdckql E 100 mg-100 1 cap PO DAILY 01/02/22 01/19/22 History unit capsule nitroglycerin 0.4 mg sublingual 0.4 mg sublingual Q5M PRN Chest 01/02/22 01/19/22 History tablet Pain hydrocodone 5 mg-acetaminophen 325 1 tablet PO BID PRN pain #60 tabs 01/27/22 01/29/22 Rx mg tablet celecoxib 200 mg capsule 200 mg PO QAM #90 caps 01/30/22 Rx Patient hx anesthesia problems: none Family hx anesthesia problems: none Results Review: All pre-operative results and documents have been reviewed as part of the pre-operative evaluation. [facility] Past Medical History Medical History CAD (coronary artery disease) Chronic pain Degenerative disc disease Hyperlipidemia Hypertension Myocardial infarct NPH (normal pressure hydrocephalus) BRETT (obstructive sleep apnea) Surgical History Surgical History History of total knee arthroplasty Hx of cystoscopy Stented coronary artery Social History Social History Smoking status: Never smoker Second hand tobacco smoke exposure: No Alcohol intake: never Substance use: never Substance use type: does not use Living arrangements: with family Additional living arrangements comments: Gender identity (if verbalized by the patient): Male Sexual Orientation (if Verbalized by the Patient): Straight or Heterosexual Spiritual care concerns: No Anes - Eval Final PreProcedure Day of Procedure 02/03/22 10:40 Patient weight: overweight Heart: regular rate and rhythm Lungs: clear to auscultation Airway: Mallampati scale class II Ne
[2022-02-03] MEDS: ceFAZolin 2 GM/D5W 50 ML 2 GM/50 ML BAG IVPB (11:10)
[2022-02-03] MEDS: LIDOCAINE HCL 2% GEL UROJET 10 ML PKG MUCOUS MEM (11:29)
--- NOTE | 2022-02-03 11:48 | W.PM.PROC2 ---
Procedure Note - Detailed Date of Procedure 02/03/22 Pre-op Diagnosis bladder CA Post-op Diagnosis Same Procedure Performed Cysto with transurethral resection of bladder tumor medium size 3-4 cm area Surgeon Chris Estevez MD Anesthesia General Description of Procedure Patient is taken to the operative suite and correctly identified. Once anesthesia was obtained was placed in dorsal lithotomy position and prepped and draped usual sterile fashion. Twenty-four Vietnamese resectoscope sheath inserted the bladder. Patient has somewhat of a fibrotic bladder neck some mild irregularity of the mucosa. We went ahead and resected this area from 10 to 2 o'clock position. We fulgurated using a roller ball. This tissue was sent as a separate specimen. We then resected an area along the left lateral wall which was a prior resection site which still had not healed appropriately. We also took a couple areas from the floor of the bladder. We then fulgurated some areas along the anterior wall and right lateral wall using a roller ball. There was fairly good hemostasis at termination of procedure. Scope was removed. 2% viscous lidocaine was inserted urethra. Eighteen Vietnamese [address] was placed with 15 cc in the balloon. It was connected to continuous bladder irrigation. Taken recovery stable condition. If his urine remains clear will discharge home home with a Pozo catheter and have it removed on Wednesday. Estimated Blood Loss 0 Drains Yes Packing No Pathology Yes Complications No immediate complications Condition Stable Disposition PACU
[2022-02-03] MEDS: fentaNYL CITRATE INJ (*CRX) 100 MCG/2 ML VIAL 25 MCG IV PUSH ×4 (12:06→12:32)
== END 2022-02-03 14:45 | disposition home or self-care (01) ==
PROVIDERS: PCP Family Medicine; Visit Provider Urology
PROC: 0TBB8ZZ Excision of Bladder, Via Natural or Artificial Opening Endoscopic (ICD-10-PCS; CPT 52235; principal; 2022-02-03 11:30)
PROC: 0TJB8ZZ Inspection of Bladder, Via Natural or Artificial Opening Endoscopic (ICD-10-PCS; CPT 52000; 2022-02-03 11:30)
DX: D41.4 Neoplasm of uncertain behavior of bladder (principal); N32.89 Other specified disorders of bladder; I25.10 Atherosclerotic heart disease of native coronary artery without angina pectoris; Z79.82 Long term (current) use of aspirin; I10 Essential (primary) hypertension; G47.33 Obstructive sleep apnea (adult) (pediatric); E78.5 Hyperlipidemia, unspecified; I25.2 Old myocardial infarction; G91.2 (Idiopathic) normal pressure hydrocephalus; Z95.5 Presence of coronary angioplasty implant and graft; N40.1 Benign prostatic hyperplasia with lower urinary tract symptoms; Z85.46 Personal history of malignant neoplasm of prostate
CPT/HCPCS: 52235; 36415; 80048; 85025; 85055; 85610; 85730; 87077; 87086; 87186; 88305; 88342; J0690; J1100; J2405; J2704; J3010; J7120

== ENCOUNTER 2022-02-09 12:30 | Outpatient (RCR) | payer MEDICARE, SELFPAY ==
--- NOTE | 2022-01-06 14:19 | PTOPEVAL ---
Thank you for referring Canelo Perez to [facility] [place] [facility] He is scheduled to be seen for therapy? 0-2x/week for 5 weeks. Please review, sign, date and return this plan of care DK. I agree with and certify that the following plan of care is medically necessary. 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 Respiratory History Hx Sleep Apnea Yes: CPAP Gastrointestinal History Hx Gastrointestinal Disorders No Significant History Genitourinary History Hx Other Genitourinary Disorders Yes: BLADDER TUMOR surgery removal; PROSTATE CA, 45 radiation treatments Musculoskeletal History Hx Arthritis Yes Hx Back Pain Yes: CHRONIC- neurostim implant Hx Crutches or Walker Use Yes: use wheeled walker Query Text:If Yes, Enter Crutches, Walker, or Both in the Comment Hx Joint Replacement Yes: BILATERAL KEES Hx Spinal Surgery Yes: lumbar surgery 3x Hematological History Hx Hematological Disorders No Significant History Endocrine History Hx Endocrine Disorders No Significant History HEENT History Hx Cataracts Yes: LT REMOVED Hx Tonsillectomy Yes Hx Other HEENT Disorders Yes: GLASSES, [facility] AIDS X2 Integumentary History Hx Shingles Yes Reproductive History Hx Other Reproductive Disorders Yes: VASECTOMY Psychosocial History Hx Psychiatric Disorders No Significant History Pain History Has Past Pain Affected Your Daily Life Yes: BACK History of Long-Term Prescription Pain Yes: HYDROCODONE Medication Use (Opiates) Anesthesia History Hx Other Anesthesia Reactions Yes: STATES SLOW TO WAKE UP Other History Hx Cancer Yes: prostate and bladder Hx Radiation Therapy Yes: PROSTATE RADIATION 45 TREATMENTS 05/2021-06/2021 Evaluation Information Diagnosis vestibular rehab Onset October 2021 Prior Level of Function Activity Level (Last 3 Months) Activity of Daily Living Ability
--- NOTE | 2022-01-19 14:39 | PCPTNOTE ---
Patient's called & cancelled scheduled appointment this date due to patient being to weak today.
--- NOTE | 2022-02-02 13:14 | PCPTNOTE ---
Patient called & cancelled scheduled appointment this date due to not feeling well, sinus issues.
--- NOTE | 2022-02-09 13:16 | PTOPDC ---
Assessment and note entered by Marissa Pool, PT Evaluation Information Assessment Status Discharge Subjective Information Canelo reports: have not had any dizziness in the past 2 weeks; did the maneuver and it cleared ; had bladder surgery and all is clear with it; Reported Pain Level Pain Score 0: Self Report Additional Pain Score Comments has back pain with movements Assessment PT Clinical Summary Canelo has received4 PT sessions for vestibular rehab. He continues to have anterior/posterior BPPV, which clears quickly with corrective maneuver. He and his are comfortable with doing the [place] at home when he does have dizziness. Goals were met. Discharge PT services. Plan of Care PT Services Indicated No
== END 2022-02-10 08:27 | disposition home or self-care (01) ==
LOC: ANHPT 12:30
PROVIDERS: PCP Internal Medicine; Visit Provider Internal Medicine
DX: R42 Dizziness and giddiness (principal)
CPT/HCPCS: 97110; 97161; 97530

== ENCOUNTER 2022-04-03 15:00 | Outpatient (RCR) | payer MEDICARE, SELFPAY ==
--- NOTE | 2022-03-25 16:01 | PTOPEVAL1 ---
Assessment and note entered by Cristiana Brito, PT Evaluation Information Assessment Status Evaluation Diagnosis unsteadiness on feet, weakness Subjective Information present for evaluation. She states pt has difficulty getting up from chair. States modification to chair to pull himself up. Pt and state last couple months having to use arms more to get up from chair. Reported Pain Level Pain Score 0: Self Report Additional Pain Score Comments Chronic pain - takes about one med a day Assessment PT Clinical Summary Pt presents with for evaluation of his balance and strength. Pt has multiple co- morbidities that have effected his mobility recently including chronic back pain with recent neuro-stimulator implanted, recent UTI, cancer and radiation treatment this year among other co- morbidities. He demo's decreased strength throughout LEs L>R, decreased balance, difficulty with sit>stand mobility, and decreased static and dynamic balance. Pt's three main goals for therapy are to improve his ability to get up from a chair , improve balance, and would like to use a smaller AD for ambulation. Pt was educated today on his diagnosis, prognosis, possible DME to assist in mobility if needed at a later date, and plan of care to address deficits and assist pt in meeting his goals. Plan of Care Interventions Gait Training,Manual Therapy,Neuro Re-education, Patient/Caregiver Ed,Prosthetic Training, Therapeutic Activities,Therapeutic Exercise,Self- Care/Home Management Other Interventions Outer AFO L ankle PT Services Indicated Yes These treatments will address the objective and functional deficits as defined above. The patient will be advanced safely and appropriately in order for the patient to progress towards his/her prior level of function. Additional exercises will be introduced and as well as a comprehensive home exercise program upon discharge, if needed, ?to ensure carryover of functional gains achieved in the clinic. This treatment plan has been reviewed and agreement upon by the patient.
--- NOTE | 2022-04-08 08:48 | PCPTNOTE ---
Pt called stating he had eaten something that didn't agree with him . Stated he was weak, having trouble eating and drinking. Advised pt in obtaining fluids via popsicles (within sugar restrictions) as well as fruit smoothies as option to improve intake. Advised to monitor for dehydration as well in case needs to go to MD.
== END 2022-06-02 12:01 | disposition still patient (30) ==
LOC: ANHHIPT 15:00
PROVIDERS: PCP Physician Assistant Medical; Visit Provider Physician Assistant Medical
DX: R26.81 Unsteadiness on feet (principal); R53.1 Weakness
CPT/HCPCS: 97110; 97112; 97162

== ENCOUNTER 2022-07-08 11:49 | Outpatient (RCR) | payer MEDICARE, SELFPAY | END 2022-07-08 11:54 | disposition home or self-care (01) | LOC: ANHHIPT 11:49 | PROVIDERS: PCP Physician Assistant Medical; Visit Provider Physician Assistant Medical | DX: R26.81 Unsteadiness on feet (principal); R53.1 Weakness | CPT/HCPCS: 99199 ==

== ENCOUNTER 2022-08-14 09:34 | Outpatient (RCR) | payer MEDICARE, SELFPAY ==
--- NOTE | 2022-08-14 10:47 | PTOPEVAL1 ---
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 Was supposed to get a scope yesterday but they thought infection so held procedure. Reported Pain Level Pain Score 0: Self Report Additional Pain Score Comments Uses implanted stimulator based on activity Assessment PT Clinical Summary Pt presents w/ diagnosis of weakness, and other abnormalities of gait and mobility. Evaluation shows pt is at high risk for falls, demos weakness throughout BLEs, decreased coordination and stability with gait, compensatory mechanics with mobility. Pt will benefit from physical therapy to address these deficits and improve safety and functional independence. Plan of Care Interventions Gait Training,Hot Pack/Cold Pack,Neuro Re- education,Therapeutic Activities,Therapeutic Exercise PT Services Indicated Yes Treatment Frequency and 1-2x weekly x 8 weeks Duration These treatments will address the objective and functional deficits as defined above. The patient will be advanced safely and appropriately in order for the patient to progress towards his/her prior level of function. Additional exercises will be introduced and as well as a comprehensive home exercise program upon discharge, if needed, ?to ensure carryover of functional gains achieved in the clinic. This treatment plan has been reviewed and agreement upon by the patient.
--- NOTE | 2022-08-17 09:48 | PCPTNOTE ---
Patient family member called & cancelled scheduled appointment this date due to patient being in the hospital.
--- NOTE | 2022-08-25 11:49 | PTOPDC ---
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 Was supposed to get a scope yesterday but they thought infection so held procedure. Assessment PT Clinical Summary Pt initiated therapy then returned to hospital for UTI. After return home, is seeking home health PT for now. Thus is being discharged due to status change and inability to perform outpatient therapy and home health simultaneously.
== END 2022-08-25 13:18 | disposition home or self-care (01) ==
LOC: ANHHIPT 09:34
PROVIDERS: PCP Physician Assistant Medical; Visit Provider Family Medicine
DX: R53.1 Weakness (principal); R26.89 Other abnormalities of gait and mobility
CPT/HCPCS: 97162; 97530

== ENCOUNTER 2022-08-26 14:19 | Outpatient (CLI) | payer MEDICARE, SELFPAY ==
--- NOTE | ~2022-08-26 | XR_ITS ---
EXAM: XR abdomen/kub 1V DATE: 08/26/2022 14:42 HISTORY: LEFT URETERAL STONE FU . COMPARISON: 01/01/2020, urethra cystogram 09/30/2021, CT abdomen and pelvis 03/20/2021. FINDINGS: Clear left lung base. Stimulator pack projects over the left abdomen. Shunt tubing project s over the upper abdomen. Normal bowel gas pattern. No organomegaly. 12 mm left and 3 mm right inferi or renal calcifications. Pelvic phleboliths. Severe degenerative lumbar disc disease. Mild bilateral hip osteoarthritis. Somewhat linear calcification in the left lower pelvis may represent the previous ly detected calcified bladder lesion. IMPRESSION: Bilateral nephrolithiasis. Reviewed, dictated and finalized at location K. IMPRESSION: Bilateral nephrolithiasis.
== END 2022-08-26 14:20 | disposition home or self-care (01) ==
PROVIDERS: PCP Physician Assistant Medical; Visit Provider Urology
DX: N20.0 Calculus of kidney (principal)
CPT/HCPCS: 74018

== ENCOUNTER 2022-09-07 09:51 | Outpatient (CLI) | payer MEDICARE, SELFPAY ==
[2022-09-07 10:38] LABS: INR 1.1; Prothrombin Time 13.7 Seconds (11.1-14.7)
== END 2022-09-07 09:52 | disposition home or self-care (01) ==
PROVIDERS: PCP Physician Assistant Medical; Visit Provider Urology
DX: Z01.818 Encounter for other preprocedural examination (principal); N20.1 Calculus of ureter
CPT/HCPCS: 36415; 85610; 85730; 87086; 87147; 87181; 87186

== ENCOUNTER 2022-09-11 00:58 | Day surgery (SDC) | payer MEDICARE, SELFPAY ==
[2022-09-04 10:36] VITALS: BMI 27.8
--- NOTE | 2022-09-04 11:12 | PC.NURSE ---
Report to the Outpatient Waiting Room, entrance under the green pavilion located off [facility], at time __9:30AM on date __09/11/22 . Planned Procedure Time: __11:30AM . Time changes happen often and if your time is changed the preop area will call you the afternoon before. - You and your visitor will be asked to self-screen and do not enter if you have any COVID symptoms. - A mask is optional within the hospital at this time. Patients may have clear liquids (water, carbonated beverages, clear teas, apple juice) until 3 hours prior to surgery with a maximum of 20 ounces. - No food from midnight until time of surgery - Infants may have breast milk until 4 hours before surgery, infant formula 6 hours prior to surgery. - Children will be allowed to drink immediately following surgery. If applicable, please bring a bottle or sippy cup to assist with drinking. Juice, water, soda, and popsicles are readily available. For infants on formula, please bring formula the day of surgery. Pacifiers are allowed. Take the following medications with a SIP of water the morning of surgery: ___HYDROCODONE NEEDED, MECLIZINE NEEDED DO NOT STOP ANY OF YOUR OTHER PRESCRIPTION MEDICATIONS PRIOR TO SURGERY ?EXCEPT THE FOLLOWING Medications to discontinue per physician ____HOLD ASPIRIN 7 DAYS PRE-OP PER DR TRUJILLO(PER PATIENT)- LAST DOSE 09/04/22, HOLD ALL VITAMINS/SUPPLEMENTS 3 DAYS PRE-OP- LAST DOSE 09/07/22 Please no make-up, nail nigerian, hairspray, perfume, deodorant, or body powder the day of surgery. No jewelry (including any body piercings) or valuables the day of surgery, leave them at home. Please take a shower or bath the night before, or the morning of, surgery with an antibacterial soap. Wear comfortable, loose fitting clothing. Children are encouraged to wear pajamas. - Jewelry must be removed prior to entering the operating room. Rings and piercings that are not removed may be cut off. - The hospital will not accept responsibility for valuables. - Please leave all valuables, including medications, at home the day of surgery. If you are going home after surgery, a licensed parts delivery driver must drive you home. - NO public transportation without another adult if you receive anesthesia. - We recommend that an adult stay with you for 24 hours following discharge. - We also recommend that you do not drive, make important decision, drink alcoholic beverages, or take any drugs that were not prescribed by your health care provider for at least 24 hours after your discharge time. Follow any additional instructions given to you from your surgeon. If you or anyone in your household have experienced Covid symptoms in the past week, please notify your surgeon or the nurse liaison at the phone number below for possible testing. Telephone instructions given to _PATIENT & WIFE__and asked if any additional questions and then verbalized understanding. Patient advised to call surgeon office or pre surgery nurse liaison [phone] if any additional questions.
[2022-09-11] VITALS (10 sets, daily range): BP systolic 111–155; BP diastolic 51–72; PULSE 67–85; RESP 12–18; TEMP 36.6–37.4; O2SAT 96–100; BMI 26.8
--- NOTE | ~2022-09-11 | XR_ITS ---
EXAMINATION: XR retrograde pyelo w/stent LT DATE: 09/11/2022 13:12 INDICATION: Left internal ureteral stent placement TECHNIQUE: Fluoroscopic images from a left internal ureteral stent placement are submitted for review . 38 seconds of fluoroscopy time. 9 fluoroscopic images. FINDINGS: There is a left double-J internal ureteral stent projecting in expected position, with proximal [place] loop at the level of the renal pelvis and distal loop in the pelvis within the bladder lumen. IMPRESSION: 1. Left internal ureteral stent placement. Please refer to real-time procedural findings for detail s. Reviewed, dictated and finalized at location A. IMPRESSION: 1. Left internal ureteral stent placement. Please refer to real-time procedur al findings for details.
--- NOTE | 2022-09-11 10:32 | SUR.PREOP ---
1030 patient has an electrical lumbar stim (turned off for surgery by patient)
--- NOTE | 2022-09-11 11:00 | WPDANESEPPF ---
Anes - Initial Pre Proc Eval Procedure: Operation Date: 09/11/22 11:30 Proposed Procedures p Trans Urethral Resection Bladder Tumor - Chris Estevez MD s Cystoscopy, Left Ureteroscopy, Left Retrograde Pyelogram, Left Stent Placement, Stone Extraction Holmium Laser - Chris Estevez MD Date/Time: 09/11/22 11:00 Surgeon: Chris Estevez MD Pre Op Diagnosis: Lt Ureteral Stone, Bladder Mass Patient Data Age: 81 Gender: M Height: 1.73 m Weight: 80 kg Last Vital Signs Temp 36.6 C 09/11/22 09:31 Pulse 72 09/11/22 09:31 Resp 14 09/11/22 09:31 BP 136/54 L 09/11/22 09:31 Pulse Ox 99 09/11/22 09:31 O2 Del Method Room Air 09/11/22 09:31 Allergies Allergy/AdvReac Type Severity Reaction Status Date / Time amoxicillin Allergy Intermediate Rash Verified 09/11/22 10:14 morphine AdvReac Mild NAUSEA/VOMI Verified 09/11/22 10:14 TTING Home Medications Medication Instructions Recorded Confirmed Type Curamin 1 tab-cap PO BID 04/01/21 09/04/22 History ascorbic acid (vitamin C) 1,000 mg 1 g PO QAM 04/01/21 09/04/22 History tablet (Vitamin C) aspirin 81 mg tablet,delayed 81 mg PO QAM 04/01/21 09/04/22 History release atorvastatin 10 mg tablet 10 mg PO HS 04/01/21 09/04/22 History cholecalciferol (vitamin D3) 25 25 mcg PO QAM 04/01/21 09/04/22 History mcg (1,000 unit) tablet (Vitamin D3) cyanocobalamin (vitamin B-12) 1,000 mcg sublingual QAM 04/01/21 09/04/22 History 1,000 mcg sublingual tablet krill 1 cap PO QAM 04/01/21 09/04/22 History [id number] 300 mg-90 mg-24 mg-50 mg capsule (krill oil) lactobacillus combo no.11 15 1 cap PO DAILY 04/01/21 09/04/22 History billion cell sprinkle capsule (Probiotic) metoprolol succinate 25 mg 25 mg PO HS 04/01/21 09/04/22 History tablet,extended release 24 hr multivitamin 1 tablet PO DAILY 04/01/21 09/04/22 History vit C 250 mg-vit E 90 mg-zinc 40 1 tablet PO BID 04/01/21 09/04/22 History mg-copper 1 [id number] capsule (PreserVision AREDS-2) vitamin B complex #9-folic 1 tablet PO QAM 04/01/21 09/04/22 History acid-vit C-vit E 1 mg-60 mg-5 unit tablet meclizine 25 mg tablet 25 mg PO TID PRN Dizziness 04/04/21 09/04/22 History nitroglycerin 0.4 mg sublingual 0.4 mg sublingual Q5M PRN Chest 01/02/22 09/04/22 History tablet Pain turmeric root extract 500 mg tablet 600 mg PO DAILY 02/10/22 09/04/22 History celecoxib 200 mg capsule 200 mg PO QAM #90 caps 06/17/22 09/04/22 Rx hydrocodone 5 mg-acetaminophen 325 1 tablet PO BID PRN pain #60 tabs 07/22/22 09/04/22 Rx mg tablet pregabalin 75 mg capsule (Lyrica) 75 mg PO HS 09/04/22 09/04/22 History Patient hx anesthesia problems: none Family hx anesthesia problems: none Results Review: All pre-operative results and documents have been reviewed as part of the pre-operative evaluation. [facility] Past Medical History Medical History Balance problem CAD (coronary artery disease) Chronic pain Decreased strength Degenerative disc disease Hyperlipidemia Hypertension Lumbar pain Myocardial infarct NPH (normal pressure hydrocephalus) BRETT (obstructive sleep apnea) Surgical History Surgical History History of total knee arthroplasty Hx of cystoscopy Stented coronary artery Social History Social History Smoking status: Never smoker Second hand tobacco smoke exposure: No Alcohol intake: never Substance use: never Substance use type: does not use Lack of Transportation: No Lack of Food: Never True Current Housing: I Have Housing Concerned About Future Housing: No Difficulty Paying Gas/Electric Bills: No Difficulty Paying for Meds: No Currently Unemployed: No Education: Don't Know Difficulty w/ Childcare or Family Care: No
--- NOTE | 2022-09-11 11:31 | WPDHPUPDATE1 ---
History and Physical Update Update Date/Time: 09/11/22 11:31 History and Physical has been reviewed, including an updated exam of the patient. There are NO changes in the patient's condition. Risks, benefits, and alternatives have been discussed and questions answered. Patient agrees to proceed with procedure. Proceed with cysto, left retrograde, left ureteroscopy with possible holmium laser, stent placement, TURBT
[2022-09-11] MEDS: ceFAZolin 2 GM/D5W 50 ML 2 GM/50 ML BAG IVPB (11:55)
[2022-09-11] MEDS: LIDOCAINE HCL 2% GEL UROJET 10 ML PKG MUCOUS MEM (13:08)
--- NOTE | 2022-09-11 13:15 | P.OP_ITS ---
Procedure Note - Detailed Date of Procedure 09/11/22 Pre-op Diagnosis Lt Ureteral Stone, Bladder Mass Post-op Diagnosis Same Procedure Performed Cystoscopy, left retrograde pyelogram, left ureteroscopy with holmium laser, stone extraction, left ureteral stent placement 4.8 [place] contour, transurethral resection with fulguration of bladder tumor and scraping of bladder neck area. Complex Pozo catheter placement [address] Surgeon Chris Estevez MD Anesthesia General Description of Procedure Patient is taken to the operative suite and correctly identified. Once anesthesia was obtained was placed in dorsal lithotomy position and prepped and draped usual sterile fashion. Nineteen [place] scope was inserted into the bladder direct vision he has these calcifications around the bladder neck and left lateral wall. 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 We 1st decided take care the stone. The left ureteral orifice was cannulated with a guidewire. Ureteral access sheath was placed. Mini flexible ureteral scope was inserted. The stone was impacted. Using a 200 micron favor used the Darrius laser to fragment the stone. These were then retrieved. Inspection of the kidney revealed no significant stone burden. Pyelogram was then performed. 4.8 [place] contour stent is placed with the proximal end coiled in the renal pelvis and the distal in the bladder. We then turned our attention to the bladder. The urethra needed to be dilated up to 24 [place]. Twenty-four [place] resectoscope sheath was then inserted in the bladder. He has a tumor along the anterior wall. His bladder appears very fibrotic and was very difficult even resect this and this was more less required fulguration of the tumor. His blood bladder wall is so thickened that we could not really do endoscopic resection of the calcified areas. We scraped all the calcifications off the bladder and then fulgurated the base. We did take some tissue from the bladder neck area which had calcifications sent for analysis. Eighteen [place] Pozo was then placed with 15 cc in the balloon. This was connected to continuous bladder irrigation and patient is taken recovery stable condition. If his urine remains clear to be discharged home with a Pozo catheter and have it removed next Wednesday or Wednesday. We will then plan on stent removal in the office in 1-2 weeks. Please send a copy of op note to my office. Estimated Blood Loss 0 Drains Yes Packing No Pathology Yes Complications No immediate complications Condition Stable Disposition PACU
--- NOTE | 2022-09-11 13:17 | SUR.OPER ---
Jacob Maddox and Dr. Estevez offered laser goggles before laser started. Jacob maddox and Dr. Estevez refused wearing goggles
[2022-09-11] MEDS: LACTATED RINGERS 1,000 ML 30 ML IV CONT (13:20)
[2022-09-11] MEDS: fentaNYL CITRATE INJ (*CRX) 100 MCG/2 ML VIAL 25 MCG IV PUSH ×4 (13:52→14:08)
[2022-09-11] MEDS: oxyCODONE HCL (*CRX) 5 MG TAB IR PO (15:06)
--- NOTE | 2022-09-11 16:22 | SUR.PHASEII ---
RN called Dr. Estevez at 1523 in regards to patient resuming aspirin and celebrex. He said okay to resume on Wednesday, September 14, 2022.
== END 2022-09-11 16:08 | disposition home or self-care (01) ==
PROVIDERS: PCP Physician Assistant Medical; Visit Provider Urology
PROC: 0TBB8ZZ Excision of Bladder, Via Natural or Artificial Opening Endoscopic (ICD-10-PCS; CPT 52204; principal; 2022-09-11 11:30)
PROC: (CPT 52352; 2022-09-11 11:30)
DX: N20.1 Calculus of ureter (principal); N32.89 Other specified disorders of bladder; I25.10 Atherosclerotic heart disease of native coronary artery without angina pectoris; I10 Essential (primary) hypertension; E78.5 Hyperlipidemia, unspecified; I25.2 Old myocardial infarction; G47.33 Obstructive sleep apnea (adult) (pediatric); G89.29 Other chronic pain; G91.2 (Idiopathic) normal pressure hydrocephalus; Z79.82 Long term (current) use of aspirin; Z79.891 Long term (current) use of opiate analgesic; Z95.5 Presence of coronary angioplasty implant and graft
CPT/HCPCS: 52204; 52214; 52356; 36415; 74420; 82365; 85610; 85730; 87086; 87147; 87181; 87186; 88300; 88305; A9270; C1769; C1894; C2617; J0690; J2405; J2704; J3010; J7120

== ENCOUNTER 2023-01-13 13:00 | Outpatient (RCR) | payer MEDICARE, SELFPAY ==
--- NOTE | 2022-10-22 15:52 | PTOPEVAL1 ---
Assessment and note entered by Cristiana Brito, PT Evaluation Information Assessment Status Evaluation Diagnosis low back pain unspec, weakness Addn. Therapy Diagnosis unsteadiness on feet, gait abnormality Subjective Information Was in therapy when had recurring UTIs. Was hospitalized and unable to perform therapy. Has now returned home and would like to continue. Has a new urologist, had an indwelling catheter for 30 days to see if helps reduce UTIs Pt's goal is to get balance back to where can walk with rollator or cane if possible. Was using a cane for a few years and got worse. Chronic back with neurostimulator 12/23/21. If up an walking or standing notes muscles vibrating . Reported Pain Level Pain Score 0: Self Report Assessment PT Clinical Summary Pt presents w/ diagnosis of low back pain and weakness. Pt had been seeing outpatient therapy previously for gait and imbalance as well and had to cease therapy due to hospitalization. He has since returned home, performed home health and has graduated from this but wants to continue to improve function. Pt demos decreased strength, abnormal gait, poor balance and endurance with testing. Pt will benefit from therapy to address deficits, improve function and pain to meet his goals for improved independence. Plan of Care Interventions Gait Training,Manual Therapy,Neuro Re-education, Patient/Caregiver Educati,Therapeutic Activities, Therapeutic Exercise,Self-Care/Home Management PT Services Indicated Yes Treatment Frequency and 2x weekly x 8 weeks Duration These treatments will address the objective and functional deficits as defined above. The patient will be advanced safely and appropriately in order for the patient to progress towards his/her prior level of function. Additional exercises will be introduced and as well as a comprehensive home exercise program upon discharge, if needed, ?to ensure carryover of functional gains achieved in the clinic. This treatment plan has been reviewed and agreement upon by the patient.
--- NOTE | 2022-10-22 15:56 | OPREHPOC ---
Outpatient Therapy Plan of Care This is a Multidisciplinary Plan of Care that may contain components documented by all disciplines (PT, OT, and ST.) PT Problem 1 PT Problem #1 Knowledge Deficit PT Goal 1 Goal Pt will be independent in home exercise program Target Visit 8 PT Goal 2 Goal Pt will demo appropriate sit<>stand with rollator throughout entire therapy session without cueing Target Visit 16 PT Problem 2 PT Problem #2 Impaired Gait PT Goal 1 Goal Pt will demo ability to ambulate 100 ft with improved foot clearance, and improved step length with LRAD Target Visit 8 PT Goal 2 Goal Pt will demo ability to ambulate 200 ft in 2 min with LRAD Target Visit 16 PT Problem 3 PT Problem #3 Impaired Endurance PT Goal 1 Goal Pt will report ability to ambulate 10 minutes or greater without having to sit from weakness/pain. Target Visit 8 PT Goal 2 Goal Pt will report ability to ambulate 20 minutes or greater without having to sit from weakness/pain. Target Visit 16 PT Problem 4 PT Problem #4 Impaired Balance PT Goal 1 Goal Pt will demo ability to sit<>stand 5 times without loss of balance or use of LEs against chair Target Visit 8 PT Goal 2 Goal Pt will demo ability to perform 5x sit to stand test within 15 seconds with or without UEs Target Visit 16
--- NOTE | 2022-10-28 12:35 | PCPTNOTE ---
Patient called & cancelled scheduled appointment this date due to going to the emergency room due to blood in stool. was informed could continue therapy plan of care with prescription stating ok to continue.
--- NOTE | 2022-11-16 15:43 | PTOPDC ---
Assessment and note entered by Cristiana Brito, PT Assessment Status Discharge - Pt Not Present Diagnosis low back pain unspec, weakness Assessment PT Clinical Summary Pt's called and cancelled the remainder of his appointments stating they do not currently have the time for therapy. was educated that we could discharge patient from therapy services and when they were able to initiate therapy again they could return with an updated prescription from their primary care provider. Thus patient is being discharged from current plan of care due to request.
--- NOTE | 2022-12-16 16:41 | PTOPPROG ---
Assessment and note entered by Cristiana Brito, PT Evaluation Information Assessment Status Progress Diagnosis low back pain unspec, weakness Subjective Information Pt reports feeling he can get around easier, can get up from chair easier. States he feels like it is helping. Has been doing pelvic floor therapy and notes however has had increased back pain in the last week and a half or so. Pt and note pt is getting up more often for pelvic floor therapy every hour. States doesn't think stimulator is working as well as used to, but also hasn't increased levels related to increased activities at home. Self-improvement: At times feels 50% improved at times. Assessment PT Clinical Summary Pt has attended therapy consistently for endurance , gait, balance, strength, and function. Pt has recently also started pelvic floor therapy with a different facility and notes has to get up every hour as part of program, greatly increasing his activity level. Reports his back began hurting more at about this same time. Today's session demos increased speed of gait, improved strength, improved mobility/balance overall and reports some days feeling 50% improved overall. Has met 3 of 5 short term goals, has progressed in all goals. Pt feels he is improving with therapy. Thus pt will benefit from continued therapy to continue progression and meet his updated goals Plan of Care Interventions Gait Training,Manual Therapy,Neuro Re-education, Patient/Caregiver Educati,Therapeutic Activities, Therapeutic Exercise,Self-Care/Home Management PT Services Indicated Yes Treatment Frequency and 2x weekly x 4 weeks Duration These treatments will address the objective and functional deficits as defined above. The patient will be advanced safely and appropriately in order for the patient to progress towards his/her prior level of function. Additional exercises will be introduced and as well as a comprehensive home exercise program upon discharge, if needed, ?to ensure carryover of functional gains achieved in the clinic. This treatment plan has been reviewed and agreement upon by the patient.
--- NOTE | 2022-12-16 16:42 | OPREHPOC ---
Outpatient Therapy Plan of Care This is a Multidisciplinary Plan of Care that may contain components documented by all disciplines (PT, OT, and ST.) PT Problem 1 PT Problem #1 Knowledge Deficit PT Goal 1 Goal Pt will be independent in home exercise program Target Visit 8 Progress Met PT Goal 2 Goal Pt will demo appropriate sit<>stand with rollator throughout entire therapy session without cueing Target Visit 20 Progress Partially Met Comment has demo'd improved use of rollator with mobility PT Problem 2 PT Problem #2 Impaired Gait PT Goal 1 Goal Pt will demo ability to ambulate 100 ft with improved foot clearance, and improved step length with LRAD Target Visit 8 Progress Partially Met Comment has demo'd this in prior sessions, difficulty today likely secondary to focus on speed versus appropriate pattern PT Goal 2 Goal Pt will demo ability to ambulate 200 ft in 2 min with LRAD Target Visit 20 Progress Partially Met Comment greatly improvec, up to 180 ft in 2 minutes PT Problem 3 PT Problem #3 Impaired Endurance PT Goal 1 Goal Pt will report ability to ambulate 10 minutes or greater without having to sit from weakness/pain. Target Visit 8 Progress Not Met Comment decreased goal to 5 minutes PT Goal 2 Goal Pt will report ability to ambulate 20 minutes or greater without having to sit from weakness/pain. Target Visit 16 Progress Not Met Comment decreased goal to 10 minutes PT Problem 4 PT Problem #4 Impaired Balance PT Goal 1 Goal Pt will demo ability to sit<>stand 5 times without loss of balance or use of LEs against chair Target Visit 8 Progress Met PT Goal 2 Goal Pt will demo ability to perform 5x sit to stand test within 15 seconds with or without UEs Target Visit 20 Progress Not Met
--- NOTE | 2023-01-13 16:17 | PTOPDC ---
Assessment and note entered by Cristiana Brito, PT Discharge Assessment Status Discharge Diagnosis low back pain unspec, weakness Subjective Information Reports feels it is easier to get around, easier to get up, and has had times has had short distances without walker or cane. notes with rollator and stimulator is moving through [place] better than when they started therapy. and pt report walked 8 times around the lap at his house. Also notes patient is having an easier time getting up and down steps into home and getting in and out of the car. Self-improvement: At times feels 62.5% improved at times. states she thinks patient os closer to 70-75%. Pt reports puts shows and socks on, gets pants layed out on the floor and gets his legs in. Needs some help with shirts to put arms in. Reports increased discomfort with getting up and down from stool as for pelvic floor partial get up to empty fully a few times. But the pain receeds quickly. Reported Pain Level Pain Score 2: Self Report Assessment PT Clinical Summary Pt has attended therapy consistently for weakness, mobility deficits, and back pain. While pt is a chronic pain patient with severe back issues and an implanted e-stim unit to tolerate pain, he has focused on strength, endurance, mobility, and balance largely with therapy to modify his abilities with his back pain and allow most functional independence. He has improved greatly during therapy, showing improvement in strength, gait pattern, and especially in endurance as patient is now able to walk 10 minutes with his rollator without having to sit down from pain pr fatigue. Pt and his have noticied increased ease of functional activities including going up and down steps to get into home and getting into and out of his car. Thus while patient has not met all his therapist assigned goals, he is able to perform many more activities for himself and with his than he had previosly. Thus patient is being discharged at this time for max benefit being met.
== END 2023-01-13 16:46 | disposition home or self-care (01) ==
LOC: ANHHIPT 13:00
PROVIDERS: PCP Physician Assistant Medical; Visit Provider Physician Assistant Medical
DX: M54.50 Low back pain, unspecified (principal); R53.1 Weakness
CPT/HCPCS: 97110; 97112; 97116; 97162; 97530; 97750